=== PATIENT | male | born 1975 | race Caucasian/White ===

== ENCOUNTER 2016-12-08 16:48 | Emergency (ER) | payer OTHER ==
[~2016-12-08] VITALS: Ht 170.2 cm; Wt 80.0 kg
[2016-12-08 17:41] VITALS: BP 107/59; PULSE 77; RESP 18; TEMP 97.9; O2SAT 95
[2016-12-08] MEDS ORDERED: GABA600T PO (17:46)
[2016-12-08] MEDS ORDERED: [UNRECOGNIZED DRUG - REMARK] (17:46)
--- NOTE | 2016-12-08 17:56 | PD ---
HPI Chief Complaint: Psychiatric Symptoms Time Seen by Provider: 17:37 Travel History International Travel<30 days: No Contact w/Intl Traveler<30days: No Traveled to known affect area: No History of Present Illness HPI 41-year-old male with history of depression, presents to the ER today because he states that he is very depressed, wants to harm himself, wants to be home with his who is only one that loves him. He denies any ingestion but has been drinking alcohol. He denies any other issues. Modifying Factors: None Associated Signs & Symptoms: Depression, suicidal ideation Risk Factors: Depression PFSH Past Medical History Anxiety: Yes Depression: Yes Psychiatric: Yes (PTSD) Immunizations Current: Yes Tetanus Vaccination: Unknown Influenza Vaccination: No Past Surgical History Abdominal Surgery: Yes (HERNIA) Social History Alcohol Use: Yes Tobacco Use: Yes Substance Use: No Allergies-Medications (Allergen,Severity, Reaction): Coded Allergies: No Known Allergies (Unverified , 12/08/16) Reported Meds & Prescriptions Reported Meds & Active Scripts Active Reported [Unk Other Meds] Gabapentin 600 Mg Tab 600 Mg PO TID Review of Systems Except as stated in HPI: all other systems reviewed are Neg Physical Exam Narrative GENERAL: Well-developed middle age white male patient who is currently awake, and oriented 3, alcohol on breath, 9 acute distress. SKIN: Focused skin assessment warm/dry. HEAD: Atraumatic. Normocephalic. EYES: Pupils equal and round. No scleral icterus. No injection or drainage. ENT: No nasal bleeding or discharge. Mucous membranes pink and moist. NECK: Trachea midline. No JVD. CARDIOVASCULAR: Regular rate and rhythm. No murmur appreciated. RESPIRATORY: No accessory muscle use. Clear to auscultation. Breath sounds equal bilaterally. GASTROINTESTINAL: Abdomen soft, non-tender, nondistended. Hepatic and splenic margins not palpable. MUSCULOSKELETAL: No obvious deformities. No clubbing. No cyanosis. No edema. NEUROLOGICAL: Awake and alert. No obvious cranial nerve deficits. Motor grossly within normal limits. Normal speech. PSYCHIATRIC: Appropriate mood and affect; insight and judgment normal. Data Data Last Documented VS Vital Signs Date Time Temp Pulse Resp B/P Pulse Ox O2 Delivery O2 Flow Rate FiO2 12/08/16 17:41 97.9 77 18 107/59 95 Room Air Orders Complete Blood Count With Diff (12/08/16 17:37) Comprehensive Metabolic Panel (12/08/16 17:37) Psych Screen (12/08/16 17:37) Drug Screen, Random Urine (12/08/16 17:37) Alcohol (Ethanol) (12/08/16 17:37) Labs Laboratory Tests Test 12/08/16 17:45 White Blood Count 6.9 TH/MM3 Red Blood Count 4.95 MIL/MM3 Hemoglobin 15.5 GM/DL Hematocrit 45.6 % Mean Corpuscular Volume 92.2 FL Mean Corpuscular Hemoglobin 31.3 PG Mean Corpuscular Hemoglobin 33.9 % Concent Red Cell Distribution Width 12.0 % Platelet Count 238 TH/MM3 Mean Platelet Volume 8.1 FL Neutrophils (%) (Auto) 60.9 % Lymphocytes (%) (Auto) 33.7 % Monocytes (%) (Auto) 3.1 % Eosinophils (%) (Auto) 1.7 % Basophils (%) (Auto) 0.6 % Neutrophils # (Auto) 4.2 TH/MM3 Lymphocytes # (Auto) 2.3 TH/MM3 Monocytes # (Auto) 0.2 TH/MM3 Eosinophils # (Auto) 0.1 TH/MM3 Basophils # (Auto) 0.0 TH/MM3 CBC Comment DIFF FINAL Differential Comment Sodium Level 145 MEQ/L Potassium Level 3.6 MEQ/L Chloride Level 110 MEQ/L Carbon Dioxide Level 24.5 MEQ/L Anion Gap 11 MEQ/L Blood Urea Nitrogen 11 MG/DL Creatinine 0.88 MG/DL Estimat Glomerular Filtration 95 ML/MIN Rate Random Glucose 87 MG/DL Calcium Level 8.7 MG/DL Total Bilirubin 0.2 MG/DL Aspartate Amino Transf 24 U/L (AST/SGOT) Alanine Aminotransferase 27 U/L (ALT/SGPT) Alkaline Phosphatase 115 U/L Total Protein 6.6 GM/DL Albumin 3.3 GM/DL Ethyl Alcohol Level 186 MG/DL MDM Medical Decision Making Medical Screen Exam Complete: Yes Emergency Medical Condition: Yes Medical Record Reviewed: Yes Interpretation(s) Laboratory Tests Test 12/08/16 17:45 Chloride Level 110 MEQ/L (98-107) Albumin 3.3 GM/DL (3.4-5.0) Ethyl Alcohol Level 186 MG/DL (0-5) Differential Diagnosis Alcohol intoxication/suicide ideation/depressionrule out metabolic issues Narrative Course Lab work shows alcohol intoxication. There is no signs of significant metabolic issues at this time. My plan would be to medically clear him for psychiatric evaluation. Patient has been Valles acted. Diagnosis Primary Impression: SUICIDAL IDEATIONS Additional Impression: Alcohol intoxication Disposition: 65 DISC TO PSYCH CARE FACILITY Condition: Stable Noe Valero MD Dec 08, 2016 17:56
[2016-12-08 18:10] LABS: AUTOMATED NEUTROPHIL # 4.2 TH/MM3 (1.8-7.7); BASOPHIL % 0.6 % (0.0-2.0); EOSINOPHIL # 0.1 TH/MM3 (0-0.4); EOSINOPHIL % 1.7 % (0.0-4.0); HEMATOCRIT 45.6 % (39.0-51.0); HEMO FLAGS DIFF FINAL; LYMPH % 33.7 % (9.0-44.0); LYMPHOCYTE # 2.3 TH/MM3 (1.0-4.8); MEAN CELL VOLUME 92.2 FL (80.0-100.0); MEAN CORPUSCULAR HEMOGLOBIN 31.3 PG (27.0-34.0); MEAN CORPUSCULAR HGB CONC 33.9 % (32.0-36.0); MONO % 3.1 % (0.0-8.0); NEUT % 60.9 % (16.0-70.0); PLATELET COUNT 238 TH/MM3 (150-450); RED BLOOD COUNT 4.95 MIL/MM3 (4.50-5.90); WHITE BLOOD COUNT 6.9 TH/MM3 (4.0-11.0)
[2016-12-08 18:26] LABS: ANION GAP 11 MEQ/L (5-15)
[2016-12-08 18:29] LABS: ALKALINE PHOSPHATASE 115 U/L (45-117); ALT (GPT) 27 U/L (12-78); AST (GOT) 24 U/L (15-37); BICARBONATE 24.5 MEQ/L (21.0-32.0); BLOOD UREA NITROGEN 11 MG/DL (7-18); CHLORIDE 110 MEQ/L (98-107); GLOMERULAR FILTRATION RATE 95 ML/MIN (>89); POTASSIUM 3.6 MEQ/L (3.5-5.1); SODIUM (NA) 145 MEQ/L (136-145); TOTAL BILIRUBIN ADULT 0.2 MG/DL (0.2-1.0)
[2016-12-08 22:08] VITALS: BP 120/57; PULSE 61; RESP 19; O2SAT 94
[2016-12-09 00:09] LABS: AMPHETAMINE, URINE POS (NEG); BARBITURATES, URINE NEG (NEG); COCAINE, URINE NEG (NEG)
[2016-12-09 02:28] VITALS: BP 143/77; PULSE 103; RESP 18; O2SAT 98
[2016-12-09 06:23] VITALS: BP 140/70; PULSE 72; RESP 18; O2SAT 97
[2016-12-09 10:00] VITALS: BP 141/67; PULSE 71; RESP 18
--- NOTE | 2016-12-09 14:33 | PD ---
History of Present Illness Chief Complaint: Psychiatric Symptoms Time Seen by Provider: 14:20 Travel History International Travel<30 Days: No Contact w/Intl Traveler<30days: No Known affected area: No Legal Status Legal Status: Valles Act Valles Act Signed By: Lenin Valles Act Comment: 12/08/16 2562 History of Present Illness: History of Present Illness HPI 41-year-old, , homeless male with a self reported history of depression who presents to the ER under a BA initiated by ANAT. As per the BA report the patient called [employer] and stated that he is out of town and feel suicidal .He reported that his is the only person that loves him and with out her he wants to jump in front of traffic and . Patient has had no previous contact with [facility] and he tells me that he is from [place] and that he hitched hiked in to town and that now " I'm stranded in [facility]". Patient has been monitored in [facility] and he has presented with no suicidality. He has slept well and has been eating well. Current toxicology is positive for amphetamines and BAL of 186. Patient is alert and oriented male. Speech is clear and logical. There is no marcelo or hypomania. He does not report any hallucinations, no delusions and no paranoia. Patient is interested in getting back to his home in [place] and is hoping the hospital can help him with this. He admits to using alcohol as well as amphetamines. Patient is vague regarding previous psychiatric history at this time and his main concern is being able to get back to his home. . PFSH Past Medical History Anxiety: Yes Depression: Yes Psychiatric: Yes (PTSD) Immunizations Current: Yes Tetanus Vaccination: Unknown Influenza Vaccination: No Past Surgical History Abdominal Surgery: Yes (HERNIA) Psychiatric History Psychiatric History Hx Psychiatric Treatment: Hx of depression and anxiety d/o. Patient states last inpatient psychiatric admission was at [facility] in [place], [place]. History of Inpatient Treatment: Yes Guns or firearms in home: No Social History male. Unemployed. Homeless Hx Alcohol Use: Yes Hx Tobacco Use: Yes Hx Substance Use: Yes Substance Use Type: Alcohol, Amphetamines-Stimulants, Nicotine/Cigarettes Hx of Substance Use Treatment: No Family Psychiatric History None reported Allergies-Medications (Allergen,Severity, Reaction): Coded Allergies: No Known Allergies (Unverified , 12/08/16) Reported Meds & Prescriptions Reported Meds & Active Scripts Active Reported [Unk Other Meds] Gabapentin 600 Mg Tab 600 Mg PO TID Review of Systems Except as stated in HPI: all other systems reviewed are Neg Exam Alert: Yes [place]: Person (ox4) Mood: Calm Affect: Appropriate Speech: Clear, Logical Eye Contact: Normal Memory Intact: Comment (No impairment) Hallucinations: Other (negative) Delusions: No Suicidal: Ideation (denies at present) Homicidal: Ideation (denies) Insight/Judgement poor. poor MDM Medical Decision Making Medical Record Reviewed: Yes Assessment/Plan 41 year old male with self reported history of depression and hx of substance use disorder who in context of both being homeless as well as acute intoxication called the police to tell them that he was suicidal. The patient reported that he was from out of town as well. The patient was allowed to sleep and rest as well as to sober up clinically. he did not present any behavioral or psychiatric concerns. He was requesting assistance in getting back to his home. Patient at this time does not meet BA criteria. He will be discharged ,. He will be provided with a voucher for the [employer] until he can get back home if this is what he chooses to do. Lift BA and discharge. Orders Complete Blood Count With Diff (12/08/16 17:37) Comprehensive Metabolic Panel (12/08/16 17:37) Psych Screen (12/08/16 17:37) Drug Screen, Random Urine (12/08/16 17:37) Alcohol (Ethanol) (12/08/16 17:37) Diet Regular Basic (12/09/16 Breakfast) Diet Regular Basic (12/09/16 Lunch) Results Vital Signs Date Time Temp Pulse Resp B/P Pulse Ox O2 Delivery O2 Flow Rate FiO2 12/09/16 10:00 71 18 141/67 Room Air 12/09/16 06:23 72 18 140/70 97 Room Air 12/09/16 02:28 103 18 143/77 98 Room Air 12/08/16 22:08 61 19 120/57 94 Room Air 12/08/16 17:41 97.9 77 18 107/59 95 Room Air Laboratory Tests Test 12/08/16 12/08/16 17:45 23:45 White Blood Count 6.9 Red Blood Count 4.95 Hemoglobin 15.5 Hematocrit 45.6 Mean Corpuscular Volume 92.2 Mean Corpuscular Hemoglobin 31.3 Mean Corpuscular Hemoglobin 33.9 Concent Red Cell Distribution Width 12.0 Platelet Count 238 Mean Platelet Volume 8.1 Neutrophils (%) (Auto) 60.9 Lymphocytes (%) (Auto) 33.7 Monocytes (%) (Auto) 3.1 Eosinophils (%) (Auto) 1.7 Basophils (%) (Auto) 0.6 Neutrophils # (Auto) 4.2 Lymphocytes # (Auto) 2.3 Monocytes # (Auto) 0.2 Eosinophils # (Auto) 0.1 Basophils # (Auto) 0.0 CBC Comment DIFF FINAL Differential Comment Sodium Level 145 Potassium Level 3.6 Chloride Level 110 Carbon Dioxide Level 24.5 Anion Gap 11 Blood Urea Nitrogen 11 Creatinine 0.88 Estimat Glomerular Filtration 95 Rate Random Glucose 87 Calcium Level 8.7 Total Bilirubin 0.2 Aspartate Amino Transf 24 (AST/SGOT) Alanine Aminotransferase 27 (ALT/SGPT) Alkaline Phosphatase 115 Total Protein 6.6 Albumin 3.3 Ethyl Alcohol Level 186 Urine Opiates Screen NEG Urine Barbiturates Screen NEG Urine Amphetamines Screen POS Urine Benzodiazepines Screen NEG Urine Cocaine Screen NEG Urine Cannabinoids Screen NEG Diagnosis Primary Impression: Alcohol intoxication Additional Impression: Amphetamine abuse Ruled Out: SUICIDAL IDEATIONS Psychiatrically Cleared: Yes Med/ Other Pt Specific Info: No Meds Exist/No RX given Disposition: 01 DISCHARGE HOME Condition: Stable Problem Qualifiers Primary Impression: Alcohol intoxication Qualified Code: F10.120 - Alcohol intoxication, uncomplicated Valery Hughes [facility] Dec 09, 2016 14:33
== END 2016-12-09 16:08 | disposition home or self-care (01) ==
LOC: NEPJ 16:48
DX: F10.120 Alcohol abuse with intoxication, uncomplicated (principal); F15.10 Other stimulant abuse, uncomplicated; Y90.6 Blood alcohol level of 120-199 mg/100 ml
CPT/HCPCS: 80053; 80307; 85025; 99285